=== PATIENT | female | born 1980 | race Caucasian/White ===

== ENCOUNTER → 2024-03-08 11:01 | Outpatient (REF) | payer BC, SELFPAY | LOC: HWRAD 11:01 | PROVIDERS: ATTENDING PHYSICIAN Nurse Practitioner | DX: M25.561 Pain in right knee (principal) | CPT/HCPCS: 73564 ==

== ENCOUNTER → 2024-04-24 06:35 | Day surgery (SDC) | payer BC, SELFPAY | LOC: GI 06:35 | PROVIDERS: ATTENDING PHYSICIAN Internal Medicine; FAMILY PHYSICIAN Nurse Practitioner | DX: Z12.11 Encounter for screening for malignant neoplasm of colon (principal); Z83.710 Family history of adenomatous and serrated polyps; K64.8 Other hemorrhoids | CPT/HCPCS: G0105 ==

== ENCOUNTER → 2024-07-31 06:46 | Outpatient (REF) | payer BC, SELFPAY | LOC: HWWDC 06:46 | PROVIDERS: ATTENDING PHYSICIAN Nurse Practitioner | DX: Z12.31 Encounter for screening mammogram for malignant neoplasm of breast (principal) | CPT/HCPCS: 77063; 77067 ==

== ENCOUNTER 2025-04-27 09:54 | Emergency (ER) | payer BC, SELFPAY ==
[2025-04-27 10:04] VITALS: BP 122/81
[2025-04-27 11:14] VITALS: BP 127/72
[2025-04-27 11:26] VITALS: BMI 27.6
[2025-04-27 11:36] LABS: Hematocrit 41.6 % (37.0-47.0); Hemoglobin 14.0 g/dL (12.0-16.0); Mean Corp Hgb Conc. 33.7 g/dL (33.0-37.0); Mean Corpuscular Volume 84.6 fL (81.0-99.0); Nucleated Red Blood Cells % 0 %; Platelet Count 263 10^3/uL (130-400); Red Cell Dist. Width 13.0 % (11.5-14.5)
[2025-04-27 11:50] LABS: ALT (SGPT) 14 U/L (0-35); AST (SGOT) 20 U/L (14-36); Albumin 4.8 g/dl (3.5-5.0); Alkaline Phosphatase 64 U/L (38-126); Blood Urea Nitrogen 11 mg/dl (7-17); Calcium 9.1 mg/dl (8.4-10.2); Carbon Dioxide 25 mmol/L (22-30); Chloride 107 mmol/L (98-107); Estimated Creatinine Clearance 123 ml/min; Glucose 94 mg/dl (70-99); Magnesium 1.8 mg/dl (1.6-2.3); Potassium 4.5 mmol/L (3.5-5.1); Sodium 140 mmol/L (135-145); Total Protein 8.0 g/dl (6.3-8.2); eGFR > 60.00
[2025-04-27] MEDS: NSS 1000 IV (11:56)
[2025-04-27 12:00] VITALS: BP 109/78
[2025-04-27 13:00] VITALS: BP 114/68
--- NOTE | 2025-04-27 13:20 | ED.GENMED ---
History of Present Illness
General
Chief Complaint: Heart Rate Problem
Source: patient
Exam Limitations: none
Time Seen by Provider: 04/27/25 11:41
History of Present Illness
History of Present Illness:
44-year-old female with remote history of atrial fibrillation presents today after waking up this morning at 730 feeling like her heart was racing. Her smart watch was telling her she had a fast heart rate. It felt irregular to her and she was
concerned it was A-fib again. There was no chest pain. No breath. She she feels better at the time my exam and in Routes she feels as though her palpitations went away. She is not anticoagulated. She does admit to having several alcoholic
beverages last evening. No other complaints at this time
Phy Exam
Physical Exam
Physical Exam:
General: Well-appearing female no acute distress
HEENT: Normocephalic atraumatic
Heart: Regular rate and rhythm
Lungs: Clear no wheeze
Extremities: No cyanosis
Skin warm no rash
Course
Orders/Labs/Results
Orders:
Orders
04/27/25 10:06
EKG [Electrocardiogram (*1)] Urgent
Reason for Study: Palpitations
04/27/25 10:07
EKG- Treatment ONCE
04/27/25 11:28
Complete Blood Count/With Diff Urgent
Comprehensive Metabolic Panel Urgent
Magnesium Urgent
TSH Reflex To Free T4 Urgent
04/27/25 11:49
0.9% Sodium Chloride 1000 ml [Nss] 1,000 ml IV BOLUS
Abnormal Lab Results
04/27/25
11:28
Absolute Neuts (auto) 7.4 H 10^3/uL
(1.4-6.5)
Absolute Lymphs (auto) 0.9 L 10^3/uL
(1.2-3.4)
Neutrophils % 86.0 H %
(42.2-75.2)
Lymphocytes % 10.5 L %
(20.5-51.1)
04/27/25 11:28
04/27/25 11:28
Vital Signs
Initial and Last Documented VS:
Initial Vital Signs
Temp Pulse Resp BP Pulse Ox
98.5 F 87 16 122/81 98
04/27/25 10:04 04/27/25 10:04 04/27/25 10:04 04/27/25 10:04 04/27/25 10:04
Last Documented Vital Signs
Temp Pulse Resp BP Pulse Ox
98.5 F 81 17 127/72 99
04/27/25 10:04 04/27/25 11:15 04/27/25 11:15 04/27/25 11:14 04/27/25 13:22
MDM/Problems Addressed
Differential Diagnosis Includes:
Patient was thought to have an episode of atrial fibrillation earlier today. She has been in sinus rhythm since arrival here. No chest pain all symptoms have improved.
Labs reviewed without significant finding normal TSH. She was hydrated and monitored for period of time without any further arrhythmias noted
Advise she follow-up with cardiology. No indication for admission
*Pulse Oximetry
SaO2: 99
Oxygen Mode of Delivery: Room air
Patient hypoxic: no
*Critical Care Note
Total Time (30-74mins, 75-104mins- exclusive of procedures): Not Applicable
Update Note
Update Note:
Patient has been in sinus rhythm since being here on the monitor no arrhythmias labs reviewed without significant finding. No indication for admission. At this point no indication for blood thinner. Stable for discharge with cardiology follow
ED Attending Note
-
Portions of this chart may have been created with voice recognition software.� Occasional wrong word or��sound alike� substitutions may have occurred due to the inherent limitations of voice recognition software.
Discharge Plan
Departure
Patient Disposition: Home (Routine Discharge)
Date of Disposition: 04/27/25
Time of Disposition: 13:33
Patient with high blood pressure during this ER visit?: No
Discharge Problem:
Heart palpitations
Instructions: Atrial Fibrillation (DC)
Prescriptions:
No Action
Pulmicort:
2 puff PO DAILY
oxycodone-acetaminophen 5 MG/325 MG tablet
1 - 2 tab PO Q3HPRN PRN (Reason: severe pain) Qty: 30 0RF
ibuprofen 600 MG tablet
600 mg PO Q4HPRN PRN (Reason: moderate pain/cramps) Qty: 0 0RF
Referrals:
Nadege Land MD [Family Provider, Internal Medicine]
Activity Restrictions/Additional Instructions:
Stay hydrated. Limit alcohol. Follow-up with cardiology. Return if worse otherwise
Interventions
Interventions:
*Risk Screen - Suicide Last Done: 04/27/25 10:04
*General Assessment Last Done: 04/27/25 11:22
*Neglect/Abuse Screening Last Done: 04/27/25 10:04
*ED- Fall Risk Assessment Last Done: 04/27/25 11:22
*ED COVID-19 Vaccine History Last Done: 04/27/25 11:22
ED- Cardiac Assessment Last Done: 04/27/25 11:20
ED- Pulmonary Assessment Last Done: 04/27/25 11:20
Discharge Date and Time
Print Language: PASHTO
== END 2025-04-27 13:40 | disposition home or self-care (01) ==
LOC: EMR 09:54
PROVIDERS: EMERGENCY PHYSICIAN Emergency Medicine; FAMILY PHYSICIAN Internal Medicine
DX: R00.2 Palpitations (principal); I48.91 Unspecified atrial fibrillation
CPT/HCPCS: 99284; 96360; 80053; 83735; 84443; 85025; 93005